=== PATIENT | male | born 1940 | race Caucasian/White ===

== ENCOUNTER 2019-05-19 19:42 | Emergency (ER) | payer OTHER ==
[~2019-05-19] VITALS: Ht 167.6 cm; Wt 68.9 kg
[2019-05-19 19:53] VITALS: Ht 167.6 cm; Wt 68.9 kg
[2019-05-20 02:43] VITALS: BP 1134/76
== END 2019-05-20 02:43 | disposition short-term general hospital (02) ==
LOC: ED 19:42
DX: S32.029A Unspecified fracture of second lumbar vertebra, initial encounter for closed fracture (principal); I25.10 Atherosclerotic heart disease of native coronary artery without angina pectoris; I95.89 Other hypotension; G20 Parkinson's disease; Z88.1 Allergy status to other antibiotic agents; Z90.89 Acquired absence of other organs; Z98.890 Other specified postprocedural states; W18.30XA Fall on same level, unspecified, initial encounter; Y93.89 Activity, other specified; Y92.89 Other specified places as the place of occurrence of the external cause; Y99.8 Other external cause status
CPT/HCPCS: J1885